=== PATIENT | female | born 1955 | race Two or more races ===

== ENCOUNTER 2025-08-07 20:21 | Inpatient (IN) | payer MEDICARE ==
[~2025-08-07] VITALS: Ht 157.5 cm; Wt 81.6 kg
[2025-08-07 22:04] LABS: AMPHETAMINE, URINE NEGATIVE (NEGATIVE); BARBITURATE, URINE NEGATIVE (NEGATIVE); BENZODIAZEPINE, URINE NEGATIVE (NEGATIVE); CANNABINOID, URINE NEGATIVE (NEGATIVE); COCCAINE, URINE NEGATIVE (NEGATIVE); OPIATE, URINE NEGATIVE (NEGATIVE)
[2025-08-07 22:05] LABS: APPEARANCE,URINE CLEAR (CLEAR); BLOOD, URINE NEGATIVE Ery/uL (NEGATIVE); LEUKOCYTE ESTERASE ,URINE 2+ (NEGATIVE); NITRITE, URINE NEGATIVE (NEGATIVE); UGLUCOSE NEGATIVE (NEGATIVE)
[2025-08-07 22:17] LABS: PLATELET COUNT (AUTO) 267 K/uL (150-450); RED BLOOD CELL COUNT(AUTO) 5.16 MIL/uL (4.0-5.2); RED CELL DISTRIBUTION WIDTH 15.3 % (11.5-15.0); WHITE BLOOD COUNT (AUTO) 7.2 K/uL (4.3-11.0)
[2025-08-07 22:23] LABS: CALCIUM, SERUM 9.4 mg/dL (8.5-10.1); CREATININE 1.1 mg/dL (0.6-1.3); SODIUM SERUM 138 mmol/L (136-145); UREA NITROGEN, BLOOD 15 mg/dL (7-18)
[2025-08-07 22:27] LABS: ADD URINE CULTURE YES
[2025-08-07 22:28] LABS: HYALINE CASTS, URINE Few /LPF (None Seen)
[2025-08-07 22:31] LABS: ASPARTATE AMINOTRANSFERASE 29 U/L (15-37); TOTAL PROTEIN, SERUM 8.4 g/dL (6.4-8.2)
[2025-08-08] MEDS: OLANZAPINE 10 MG VIAL IM ONE (01:48)
[2025-08-08] MEDS ORDERED: QUETIAPINE FUMARATE 25 MG TABLET PO PRN ×2 (05:00)
[2025-08-08] MEDS ORDERED: ZOLPIDEM TARTRATE 5 MG TABLET PO PRN (05:00)
[2025-08-08] MEDS ORDERED: MAGNESIUM HYDROXIDE 30 ML UDC PO PRN (05:00)
[2025-08-08] MEDS ORDERED: OLANZAPINE 10 MG VIAL IM STA (05:14)
[2025-08-08] MEDS: OLANZAPINE 10 MG VIAL IM STA (05:21)
[2025-08-08] MEDS: BLOOD SUGAR DIAGNOSTIC 1 EACH STRIP IN ONE (05:29)
[2025-08-08 08:00] VITALS: BP 98/61; TEMP 97.9; O2SAT 97
[2025-08-08] MEDS ORDERED: SUVO20TA PO (13:02)
[2025-08-08] MEDS ORDERED: DULO60CA64 PO (13:02)
[2025-08-08] MEDS ORDERED: ERGO500093 PO (13:02)
[2025-08-08] MEDS ORDERED: LISI20TA30 PO (13:02)
[2025-08-08] MEDS ORDERED: PANT40TA49 PO (13:02)
[2025-08-08] MEDS ORDERED: LORA10TA7 PO (13:02)
[2025-08-08] MEDS ORDERED: IBUP-2715 PO (13:02)
[2025-08-08] MEDS: risperiDONE-M 0.5 MG TAB.RAPDIS PO PRN (14:56)
[2025-08-08] MEDS: ZIPRASIDONE MESYLATE 20 MG/VIAL VIAL IM ONE (15:09)
[2025-08-08 16:09] VITALS: BP 160/87; TEMP 97.7; O2SAT 98
[2025-08-08] MEDS: LISINOPRIL (20MG) 20 MG TABLET PO SCH (19:30)
[2025-08-08] MEDS: PANTOPRAZOLE 40 MG TABLET.DR PO SCH (19:30)
[2025-08-08] MEDS: DIVALPROEX SODIUM 250 MG TABLET.DR PO SCH (21:00)
[2025-08-08] MEDS: RISPERIDONE 0.25 MG TAB.RAPDIS PO SCH (21:00)
[2025-08-08] MEDS: ZOLPIDEM TARTRATE 5 MG TABLET PO PRN (22:02)
[2025-08-09 08:00] VITALS: BP 106/92; TEMP 98.1; O2SAT 98
[2025-08-09 08:41] LABS: ASPARTATE AMINOTRANSFERASE 24.0 U/L (15-37); CALCIUM, SERUM 9.4 mg/dL (8.5-10.1); CREATININE 0.9 mg/dL (0.6-1.3); SODIUM SERUM 141.0 mmol/L (136-145); TOTAL PROTEIN, SERUM 8.2 g/dL (6.4-8.2); UREA NITROGEN, BLOOD 14.0 mg/dL (7-18)
[2025-08-09] MEDS: AMLODIPINE BESYLATE 5 MG TABLET PO SCH (09:00)
[2025-08-09 09:02] LABS: LDL 78 mg/dL (0-99)
[2025-08-09] MEDS: risperiDONE-M 0.5 MG TAB.RAPDIS PO SCH (09:49)
[2025-08-09 16:00] VITALS: BP 122/65; TEMP 97.9; O2SAT 100
[2025-08-09 20:10] VITALS: BP 103/56; TEMP 97.9; O2SAT 100
[2025-08-10 08:00] VITALS: BP 129/75; TEMP 98; O2SAT 97
[2025-08-10 16:00] VITALS: BP 100/61; TEMP 98.2; O2SAT 99
[2025-08-10] MEDS: risperiDONE-M 0.5 MG TAB.RAPDIS PO SCH (20:14)
[2025-08-10 20:18] VITALS: BP 123/69; TEMP 98.2; O2SAT 97
[2025-08-11 08:00] VITALS: BP 114/52; TEMP 97.7; O2SAT 96
[2025-08-11] MEDS: ERGOCALCIFEROL (VITAMIN D 2) 50,000 UNIT CAPSULE PO SCH (09:37)
[2025-08-11 16:00] VITALS: BP 112/65; TEMP 97.7; O2SAT 97
[2025-08-11 20:19] VITALS: BP 128/70; TEMP 98.1; O2SAT 97
[2025-08-12 08:00] VITALS: BP 123/76; TEMP 98.7; O2SAT 98
[2025-08-12 16:00] VITALS: BP 156/59; TEMP 97.8; O2SAT 98
[2025-08-12 20:34] VITALS: BP 133/80; TEMP 97.9; O2SAT 98
[2025-08-13 08:00] VITALS: BP 123/80; TEMP 98; O2SAT 99
[2025-08-13] MEDS: LORATADINE 10 MG TABLET PO PRN (08:23)
[2025-08-13 16:00] VITALS: BP 114/83; TEMP 97.7; O2SAT 100
[2025-08-13 19:58] VITALS: BP 117/75; TEMP 98.1; O2SAT 100
[2025-08-14 08:00] VITALS: BP 100/52; TEMP 98.6; O2SAT 99
[2025-08-14 11:45] VITALS: BP 126/84
[2025-08-14 16:00] VITALS: BP 111/62; TEMP 98.2; O2SAT 100
[2025-08-14 20:09] VITALS: BP 136/72; TEMP 98.4; O2SAT 98
[2025-08-14] MEDS: risperiDONE-M 0.5 MG TAB.RAPDIS PO SCH (20:32)
[2025-08-15 08:00] VITALS: BP 106/59; TEMP 97.7; O2SAT 96
[2025-08-15 16:10] VITALS: BP 115/76; TEMP 97.7; O2SAT 99
[2025-08-15] MEDS: ACETAMINOPHEN 325 MG TABLET PO PRN (18:55)
[2025-08-15 20:08] VITALS: BP 120/78; TEMP 98.1; O2SAT 99
[2025-08-16 08:00] VITALS: BP 130/87; TEMP 98; O2SAT 100
[2025-08-16 16:00] VITALS: BP 116/64; TEMP 98; O2SAT 97
[2025-08-16 20:10] VITALS: BP 112/68; TEMP 98.1; O2SAT 100
[2025-08-17 08:00] VITALS: BP 118/83; TEMP 98; O2SAT 97
[2025-08-17 16:00] VITALS: BP 115/68; TEMP 98; O2SAT 100
[2025-08-17 20:15] VITALS: BP 125/77; TEMP 98.2; O2SAT 98
[2025-08-17] MEDS: risperiDONE-M 0.5 MG TAB.RAPDIS PO SCH (20:55)
[2025-08-18 08:00] VITALS: BP 124/73; TEMP 98; O2SAT 96
[2025-08-18 16:00] VITALS: BP 101/67; TEMP 97.7; O2SAT 100
[2025-08-18 20:00] VITALS: BP 125/73; TEMP 97.8; O2SAT 100
[2025-08-19 08:00] VITALS: BP 119/72; TEMP 98.5; O2SAT 97
[2025-08-19 16:00] VITALS: BP 112/63; TEMP 98.1; O2SAT 99
[2025-08-19 19:54] VITALS: BP 126/71; TEMP 98.1; O2SAT 96
[2025-08-20] VITALS (7 sets, daily range): BP systolic 114–117; BP diastolic 58–72; TEMP 97.9–98.6; O2SAT 92–100
[2025-08-20] MEDS: MAG HYDROX/AL HYDROX/SIMETH 30 ML UDC PO PRN (00:18)
[2025-08-20] MEDS ORDERED: GUAIFENESIN/D-METHORPHAN HB 5 ML UDC PO PRN (12:00)
[2025-08-20] MEDS: ALBUTEROL FS 2.5 MG/0.5 ML VIAL.NEB NEB PRN (14:14)
[2025-08-21 08:00] VITALS: BP 133/70; TEMP 98.7; O2SAT 98
[2025-08-21 16:00] VITALS: BP 105/64; TEMP 98.7; O2SAT 99
[2025-08-21 20:08] VITALS: BP 100/53; TEMP 98.7; O2SAT 96
[2025-08-21 21:00] VITALS: BP 136/61; TEMP 97.3; O2SAT 98
[2025-08-22] VITALS (7 sets, daily range): BP systolic 108–118; BP diastolic 64–85; TEMP 97.8–98.6; O2SAT 92–100
[2025-08-23 08:38] VITALS: BP 116/67; TEMP 97.7; O2SAT 99
[2025-08-23 15:27] VITALS: O2SAT 97
[2025-08-23 15:37] VITALS: O2SAT 100
[2025-08-23 16:00] VITALS: BP 105/69; TEMP 98.6; O2SAT 100
== END 2025-08-23 16:30 | disposition home or self-care (01) | DRG 885 ==
LOC: ER 20:31 → GPS 08-08 04:42
PROVIDERS: ADMIT Psychiatry & Neurology Psychiatry; ATTEND Internal Medicine
DX: F31.2 Bipolar disorder, current episode manic severe with psychotic features (principal); F25.9 Schizoaffective disorder, unspecified; I10 Essential (primary) hypertension; F29 Unspecified psychosis not due to a substance or known physiological condition; E78.5 Hyperlipidemia, unspecified; Z90.710 Acquired absence of both cervix and uterus; F39 Unspecified mood [affective] disorder
CPT/HCPCS: 36415; 80048-TC; 80053-TC; 80061-TC; 80076-TC; 80164-TC; 80178-TC; 81001; 85025-TC; 87086-TC; 94760-TC; 94761-TC; 94762-TC; 94799-TC; 97110-TC; 97116-TC; 97530-TC; 98960; J3486; J3490